=== PATIENT | male | born 1965 | race Caucasian/White ===

== ENCOUNTER 2023-12-28 16:32 | Inpatient (IN) | payer OTHER ==
[~2023-12-28] VITALS: Ht 180.3 cm; Wt 84.8 kg
[2023-12-28 16:35] VITALS: BP 151/95; PULSE 103; RESP 22; TEMP 97.5; O2SAT 98
[2023-12-28] MEDS: FAMOTIDINE 20 MG/2 ML VIAL IVP ONE (17:06)
[2023-12-28] MEDS: NACL 0.9% 1,000 ML IV ONE (17:06)
[2023-12-28 17:10] LABS: BASOPHILS % (AUTO) 0.2 % (0.0-2.0); EOSINOPHILS # (AUTO) 0.2 K/uL (0-0.4); EOSINOPHILS % (AUTO) 2.6 % (0.0-4.0); HEMATOCRIT 40.2 % (36-52); HEMOGLOBIN 13.4 g/dL (12.0-18.0); LYMPHOCYTES # (AUTO) 2.2 K/uL (2.0-11.5); LYMPHOCYTES % (AUTO) 23.9 % (20.5-51.1); MEAN CORPUSCULAR HEMOGLOBIN 28 pg (27-31); MEAN CORPUSCULAR HGB CONC 33 g/dL (33-37); MONOCYTES # (AUTO) 0.5 K/uL (0.8-1.0); MONOCYTES % (AUTO) 5.4 % (1.7-9.3); NEUTROPHILS # (AUTO) 6.1 K/uL (1.8-7.7); NEUTROPHILS % (AUTO) 67.9 % (42.2-75.2); PLATELET COUNT (AUTO) 257 K/uL (140-450); RED BLOOD CELL COUNT(AUTO) 4.78 MIL/uL (4.20-6.10); RED CELL DISTRIBUTION WIDTH 14.4 % (11.6-13.7)
[2023-12-28 17:19] LABS: ANION GAP 12.4 (8-16); CARBON DIOXIDE 25.7 mmol/L (21-32); CREATININE 0.9 mg/dL (0.6-1.3); POTASSIUM 4.1 mmol/L (3.5-5.1)
[2023-12-28] MEDS: ONDANSETRON 4 MG/2 ML VIAL IVP ONE (17:20)
[2023-12-28] MEDS: MORPHINE SULFATE 4 MG/ML SYR IVP ONE ×2 (17:21→18:30)
[2023-12-28 17:29] LABS: ALANINE AMINOTRANSFERASE 33 U/L (12-78); ALBUMIN 3.5 g/dL (3.4-5.0); ALKALINE PHOSPHATASE 59 U/L (50-136); ASPARTATE AMINOTRANSFERASE 6 U/L (15-37); BILIRUBIN,DIRECT 0.1 mg/dL (0.0-0.3); LIPASE 101 U/L (16-77); TOTAL BILIRUBIN 0.4 mg/dL (0.0-1.0)
[2023-12-28] MEDS ORDERED: AMLO2.5T PO (17:46)
[2023-12-28 18:21] LABS: APPEARANCE,URINE CLEAR (CLEAR); BILIRUBIN,URINE NEGATIVE (NEGATIVE); BLOOD, URINE NEGATIVE (NEGATIVE); COLOR,URINE YELLOW (YELLOW); LEUKOCYTE ESTERASE ,URINE NEGATIVE (NEGATIVE); NITRITE, URINE NEGATIVE (NEGATIVE); PROTEIN,URINE NEGATIVE (NEGATIVE); UGLUCOSE 3+ (NEGATIVE); UROBILINOGEN,URINE 0.2 EU/dL (0.2 - 1)
[2023-12-28] MEDS: METOCLOPRAMIDE 10 MG/2 ML INJ VIAL IVP ONE (18:31)
[2023-12-28] MEDS ORDERED: diphenhydrAMINE 50 MG/ML VIAL IVP ONE (18:55)
[2023-12-28] MEDS ORDERED: ACETAMINOPHEN 325 MG TAB PO PRN (19:00)
[2023-12-28] MEDS ORDERED: MAG SULF 2000 MG/WATER PREMIX 50 ML IV PRN (19:00)
[2023-12-28] MEDS ORDERED: ZOLPIDEM 5 MG TAB PO PRN (19:00)
[2023-12-28] MEDS ORDERED: MAGNESIUM OXIDE 400 MG TAB PO PRN (19:00)
[2023-12-28] MEDS ORDERED: POTASSIUM CHLORIDE 10 MEQ TABER PO PRN (19:00)
[2023-12-28] MEDS ORDERED: METOCLOPRAMIDE 10 MG/2 ML INJ VIAL IVP PRN (19:00)
[2023-12-28] MEDS ORDERED: KCL 20 MEQ IN 100 mL PREMIX 200 ML IV PRN (19:00)
[2023-12-28] MEDS ORDERED: DEXTROSE 50% 50 ML SYR IVP PRN (19:05)
[2023-12-28] MEDS: LORazepam 1 MG TAB PO ONE (19:38)
[2023-12-28] MEDS: NACL 0.9% 1,000 ML IV SCH (19:40)
[2023-12-28] MEDS: HYDROcodone/APAP 5/325 MG 1 TAB TAB PO PRN (20:38)
[2023-12-28] MEDS: BLOOD GLUCOSE MONITORING 1 DEV DEV FS SCH (21:15)
[2023-12-28] MEDS: INSULIN LISPRO SLIDING SCALE 100 UNITS/ML VIAL SUBQ PRN (21:31)
[2023-12-28] MEDS: LORazepam 1 MG TAB PO PRN (22:01)
[2023-12-28] MEDS: MORPHINE SULFATE 4 MG/ML SYR IVP PRN (22:02)
[2023-12-28 22:51] VITALS: PULSE 75; RESP 18; O2SAT 97
[2023-12-29] VITALS: BP 138/89; PULSE 75; RESP 18; TEMP 97.7; O2SAT 97
[2023-12-29] MEDS: ONDANSETRON 4 MG/2 ML VIAL IVP PRN (02:39)
[2023-12-29 04:00] VITALS: BP 111/71; PULSE 89; RESP 18; TEMP 97.6; O2SAT 97
[2023-12-29 07:00] LABS: BASOPHILS % (AUTO) 0.4 % (0.0-2.0); EOSINOPHILS # (AUTO) 0.3 K/uL (0-0.4); EOSINOPHILS % (AUTO) 3.9 % (0.0-4.0); HEMATOCRIT 35.5 % (36-52); HEMOGLOBIN 12.2 g/dL (12.0-18.0); LYMPHOCYTES # (AUTO) 2.1 K/uL (2.0-11.5); LYMPHOCYTES % (AUTO) 28.2 % (20.5-51.1); MEAN CORPUSCULAR HEMOGLOBIN 29 pg (27-31); MEAN CORPUSCULAR HGB CONC 34 g/dL (33-37); MEAN CORPUSCULAR VOLUME 84.3 fL (80-94); MONOCYTES # (AUTO) 0.4 K/uL (0.8-1.0); NEUTROPHILS # (AUTO) 4.5 K/uL (1.8-7.7); NEUTROPHILS % (AUTO) 61.5 % (42.2-75.2); PLATELET COUNT (AUTO) 224 K/uL (140-450); RED BLOOD CELL COUNT(AUTO) 4.22 MIL/uL (4.20-6.10); RED CELL DISTRIBUTION WIDTH 14.3 % (11.6-13.7); WHITE BLOOD COUNT (AUTO) 7.3 K/uL (4.8-10.8)
[2023-12-29 07:11] LABS: ANION GAP 10.8 (8-16); CALCIUM 8.3 mg/dL (8.5-10.1); CARBON DIOXIDE 24.9 mmol/L (21-32); CREATININE 0.7 mg/dL (0.6-1.3); POTASSIUM 3.7 mmol/L (3.5-5.1)
[2023-12-29 08:00] VITALS: BP 129/90; PULSE 89; RESP 18; TEMP 97.3; O2SAT 97
[2023-12-29] MEDS: ENOXAPARIN 40 MG/0.4 ML SYR SUBQ SCH (09:00)
[2023-12-29] MEDS: MAG SULF 2000 MG/WATER PREMIX 50 ML IV ONE (09:59)
[2023-12-29] MEDS: NICOTINE TRANSD SYS 21 MG/24 HR PATCH TD SCH (10:46)
[2023-12-29 12:00] VITALS: BP 129/90; PULSE 89; RESP 18; TEMP 97.3; O2SAT 98
[2023-12-29 14:20] VITALS: BP 129/90; PULSE 89; RESP 18; TEMP 97.3
[2023-12-29] MEDS ORDERED: SUCR1TAB56 PO (14:34)
[2023-12-29] MEDS ORDERED: SITA25TA3 PO (14:34)
[2023-12-29] MEDS ORDERED: DAPA5TAB PO (14:34)
[2023-12-29] MEDS ORDERED: PANT40EC PO (14:34)
[2023-12-29] MEDS ORDERED: HYDR-5080 PO (14:42)
[2023-12-29] MEDS ORDERED: METF-350 PO (14:42)
[2023-12-29] MEDS ORDERED: ATI.5 PO (14:42)
[2023-12-29] MEDS ORDERED: ASPI-1749 PO (14:42)
[2023-12-29] MEDS ORDERED: NITR1PAT3 TD (14:42)
[2023-12-29] MEDS ORDERED: METOCLOPRAMIDE 10 MG/10 ML SYRP UDC GT SCH (16:30)
[2023-12-29] MEDS ORDERED: SUCRALFATE 1 GM TAB PO SCH (16:30)
[2023-12-30] MEDS ORDERED: PANTOPRAZOLE 40 MG INJ VIAL IVP SCH (09:00)
== END 2023-12-29 15:00 | disposition home or self-care (01) | DRG 48 ==
LOC: MED 16:32 → MTU 19:01
PROVIDERS: ADMIT Hospitalist; ATTEND Hospitalist
DX: E11.43 Type 2 diabetes mellitus with diabetic autonomic (poly)neuropathy (principal); E11.65 Type 2 diabetes mellitus with hyperglycemia; K52.9 Noninfective gastroenteritis and colitis, unspecified; K31.84 Gastroparesis; E11.40 Type 2 diabetes mellitus with diabetic neuropathy, unspecified; E78.5 Hyperlipidemia, unspecified; I10 Essential (primary) hypertension; F17.200 Nicotine dependence, unspecified, uncomplicated; G89.29 Other chronic pain; K29.70 Gastritis, unspecified, without bleeding; I25.10 Atherosclerotic heart disease of native coronary artery without angina pectoris; Z79.84 Long term (current) use of oral hypoglycemic drugs; Z88.8 Allergy status to other drugs, medicaments and biological substances; Z79.899 Other long term (current) drug therapy; Z95.5 Presence of coronary angioplasty implant and graft; E83.42 Hypomagnesemia
CPT/HCPCS: 36415; 71045; 80048; 80076; 81003; 82948; 83036; 83690; 83735; 84484; 85025; 87081; 93005; 96361; 96374; 96375; 96376; 99285; J2270; J2405; J2765; J3475; J3490; Q0092

== ENCOUNTER 2024-03-24 21:29 | Emergency (ER) | payer OTHER ==
[~2024-03-24] VITALS: Ht 180.3 cm; Wt 88.5 kg
[~2024-03-24 21:29] MED LIST: AMLO2.5T PO; ASPI-1749 PO; ATI.5 PO; DAPA5TAB PO; HYDR-5080 PO; METF-350 PO; NITR1PAT3 TD; PANT40EC PO; SITA25TA3 PO; SUCR1TAB56 PO
[2024-03-24 21:40] VITALS: BP 153/98; PULSE 90; RESP 16; TEMP 97.7; O2SAT 98
[2024-03-24 22:14] LABS: BASOPHILS # (AUTO) 0.1 K/uL (0.00-0.22); EOSINOPHILS # (AUTO) 0.6 K/uL (0-0.4); EOSINOPHILS % (AUTO) 5.7 % (0.0-4.0); HEMATOCRIT 41.4 % (36-52); HEMOGLOBIN 13.8 g/dL (12.0-18.0); LYMPHOCYTES # (AUTO) 2.6 K/uL (2.0-11.5); LYMPHOCYTES % (AUTO) 25.2 % (20.5-51.1); MEAN CORPUSCULAR HEMOGLOBIN 26 pg (27-31); MEAN CORPUSCULAR HGB CONC 33 g/dL (33-37); MEAN CORPUSCULAR VOLUME 79.2 fL (80-94); MONOCYTES # (AUTO) 0.7 K/uL (0.8-1.0); MONOCYTES % (AUTO) 6.8 % (1.7-9.3); NEUTROPHILS # (AUTO) 6.2 K/uL (1.8-7.7); NEUTROPHILS % (AUTO) 61.3 % (42.2-75.2); PLATELET COUNT (AUTO) 300 K/uL (140-450); RED BLOOD CELL COUNT(AUTO) 5.23 MIL/uL (4.20-6.10); RED CELL DISTRIBUTION WIDTH 15.4 % (11.6-13.7); WHITE BLOOD COUNT (AUTO) 10.2 K/uL (4.8-10.8)
[2024-03-24 22:38] LABS: ALANINE AMINOTRANSFERASE 23 U/L (12-78); ALBUMIN 3.6 g/dL (3.4-5.0); ALKALINE PHOSPHATASE 75 U/L (50-136); ANION GAP 13.7 (8-16); ASPARTATE AMINOTRANSFERASE 27 U/L (15-37); CALCIUM 9.4 mg/dL (8.5-10.1); CARBON DIOXIDE 29.4 mmol/L (21-32); CHLORIDE 99 mmol/L (98-107); CREATININE 0.9 mg/dL (0.6-1.3); GFR ARICAN-AMERICAN 112 mL/min (>90); GFR NON ARICAN-AMERICAN 93 mL/min (>90); GLUCOSE 205 mg/dL (74-106); POTASSIUM 4.1 mmol/L (3.5-5.1); SODIUM SERUM 138 mmol/L (136-145); TOTAL BILIRUBIN 0.4 mg/dL (0.0-1.0); TOTAL PROTEIN, SERUM 7.6 g/dL (6.4-8.2); UREA NITROGEN, BLOOD 9 mg/dL (7-18)
[2024-03-24] MEDS: ONDANSETRON 4 MG/2 ML VIAL IVP ONE (22:58)
[2024-03-24] MEDS: MORPHINE SULFATE 4 MG/ML SYR IVP ONE (23:03)
[2024-03-24] MEDS: HYDROmorphone PFS 2 MG/ML SYR IVP ONE (23:37)
[2024-03-25] MEDS: HYDROmorphone PFS 2 MG/ML SYR IVP ONE (00:34)
[2024-03-25 00:37] VITALS: BP 157/91; PULSE 85; RESP 18; TEMP 97.7; O2SAT 94
[2024-03-25] MEDS ORDERED: LID5T TP (01:48)
[2024-03-25] MEDS ORDERED: CYCL-711 PO (01:48)
[2024-03-25] MEDS: MORPHINE SULFATE 4 MG/ML SYR IVP ONE (01:55)
[2024-03-25] MEDS: LIDOCAINE 5% 1 EA PATCH TP ONE (01:57)
[2024-03-25] MEDS: CYCLOBENZAPRINE 10 MG TAB PO ONE (01:57)
== END 2024-03-25 02:00 | disposition home or self-care (01) ==
LOC: MED 21:29
DX: R10.84 Generalized abdominal pain (principal); G89.29 Other chronic pain; R07.9 Chest pain, unspecified; F11.90 Opioid use, unspecified, uncomplicated; E11.9 Type 2 diabetes mellitus without complications; I10 Essential (primary) hypertension; Z95.5 Presence of coronary angioplasty implant and graft; Z79.899 Other long term (current) drug therapy; Z79.82 Long term (current) use of aspirin; Z88.6 Allergy status to analgesic agent; Z88.8 Allergy status to other drugs, medicaments and biological substances
CPT/HCPCS: 36415; 71045; 74176; 80053; 84484; 85025; 93005; 96374; 96375; 96376; 99285; J1171; J2270; J2405; Q0092

== ENCOUNTER 2024-04-10 15:56 | Inpatient (IN) | payer OTHER ==
[~2024-04-10] VITALS: Ht 175.3 cm; Wt 86.2 kg
[~2024-04-10 15:56] MED LIST changes: +CYCL-711 PO; +LID5T TP
[2024-04-10 16:04] VITALS: BP 150/79; PULSE 80; RESP 20; TEMP 98.6; O2SAT 98
[2024-04-10 18:17] LABS: BASOPHILS % (AUTO) 0.2 % (0.0-2.0); EOSINOPHILS # (AUTO) 0.3 K/uL (0-0.4); EOSINOPHILS % (AUTO) 2.6 % (0.0-4.0); HEMATOCRIT 40.7 % (36-52); LYMPHOCYTES # (AUTO) 1.8 K/uL (2.0-11.5); LYMPHOCYTES % (AUTO) 16.4 % (20.5-51.1); MEAN CORPUSCULAR HEMOGLOBIN 25 pg (27-31); MEAN CORPUSCULAR HGB CONC 32 g/dL (33-37); MEAN CORPUSCULAR VOLUME 78.6 fL (80-94); MONOCYTES # (AUTO) 0.6 K/uL (0.8-1.0); MONOCYTES % (AUTO) 5.9 % (1.7-9.3); NEUTROPHILS # (AUTO) 8.3 K/uL (1.8-7.7); NEUTROPHILS % (AUTO) 74.9 % (42.2-75.2); PLATELET COUNT (AUTO) 281 K/uL (140-450); RED BLOOD CELL COUNT(AUTO) 5.18 MIL/uL (4.20-6.10); RED CELL DISTRIBUTION WIDTH 15.9 % (11.6-13.7)
[2024-04-10 18:41] LABS: ANION GAP 11.3 (8-16); CALCIUM 9.4 mg/dL (8.5-10.1); CARBON DIOXIDE 29.8 mmol/L (21-32); CREATININE 1.1 mg/dL (0.6-1.3); POTASSIUM 4.1 mmol/L (3.5-5.1)
[2024-04-10] MEDS: NACL 0.9% 1,000 ML IV ONE (19:00)
[2024-04-10] MEDS: ONDANSETRON 4 MG/2 ML VIAL IVP ONE (19:09)
[2024-04-10] MEDS: MORPHINE SULFATE 4 MG/ML SYR IVP ONE (19:12)
[2024-04-10] MEDS: FAMOTIDINE 20 MG/2 ML VIAL IVP ONE (20:53)
[2024-04-10] MEDS: LORazepam 2 MG/ML VIAL IVP ONE (21:09)
[2024-04-10 21:29] LABS: APPEARANCE,URINE CLEAR (CLEAR); BILIRUBIN,URINE NEGATIVE (NEGATIVE); BLOOD, URINE NEGATIVE (NEGATIVE); COLOR,URINE YELLOW (YELLOW); LEUKOCYTE ESTERASE ,URINE NEGATIVE (NEGATIVE); NITRITE, URINE NEGATIVE (NEGATIVE); PROTEIN,URINE NEGATIVE (NEGATIVE); UGLUCOSE 1+ (NEGATIVE); UROBILINOGEN,URINE 0.2 EU/dL (0.2 - 1)
[2024-04-10] MEDS: HYDROmorphone PFS 2 MG/ML SYR IVP ONE (22:33)
[2024-04-10] MEDS ORDERED: MORPHINE SULFATE 2 MG/ML SYR IVP PRN (22:45)
[2024-04-10] MEDS ORDERED: ACETAMINOPHEN 325 MG TAB PO PRN (22:45)
[2024-04-10] MEDS ORDERED: MORPHINE SULFATE 4 MG/ML SYR IVP PRN (22:45)
[2024-04-10] MEDS ORDERED: INSULIN LISPRO SLIDING SCALE 100 UNITS/ML VIAL SUBQ PRN (22:45)
[2024-04-10] MEDS ORDERED: HYDROcodone/APAP 5/325 MG 1 TAB TAB PO PRN (22:45)
[2024-04-10] MEDS ORDERED: DEXTROSE 50% 50 ML SYR IVP PRN (22:45)
[2024-04-10] MEDS: DEXT 5% /NACL 0.9% 1,000 ML IV SCH (23:33)
[2024-04-11] MEDS ORDERED: BLOOD GLUCOSE MONITORING 1 DEV DEV FS SCH
[2024-04-11] MEDS: ONDANSETRON 4 MG/2 ML VIAL IVP PRN (00:05)
[2024-04-11 01:11] VITALS: BP 153/89; PULSE 89; RESP 20; TEMP 98; O2SAT 99
[2024-04-11] MEDS ORDERED: PANTOPRAZOLE 40 MG INJ VIAL IVP SCH (09:00)
== END 2024-04-11 01:15 | disposition left against medical advice (07) | DRG 249 ==
LOC: MED 15:56 → MTU 22:53
PROVIDERS: ADMIT Internal Medicine; ATTEND Internal Medicine
DX: K52.9 Noninfective gastroenteritis and colitis, unspecified (principal); K83.8 Other specified diseases of biliary tract; I25.2 Old myocardial infarction; Z53.29 Procedure and treatment not carried out because of patient's decision for other reasons; Z88.8 Allergy status to other drugs, medicaments and biological substances; Z79.82 Long term (current) use of aspirin; Z79.84 Long term (current) use of oral hypoglycemic drugs; Z79.899 Other long term (current) drug therapy; Z95.5 Presence of coronary angioplasty implant and graft
CPT/HCPCS: 36415; 76705; 80048; 81003; 83690; 84484; 85025; 87040; 93005; 96361; 96374; 96375; 99285; J1171; J2060; J2270; J2405; J3490; Q0092